=== PATIENT | male | born 2000 | race Caucasian/White ===

== ENCOUNTER 2024-10-01 16:42 | Emergency (ER) | payer MEDICAID ==
[~2024-10-01] VITALS: Ht 182.9 cm; Wt 87.0 kg
[2024-10-01 16:44] VITALS: O2SAT 100
[2024-10-01] MEDS: ACETAMINOPHEN 325MG TABLET PO ONE (18:01)
[2024-10-01] MEDS ORDERED: BACITRACIN ZINC OINT UDPKT TOP ONE (18:45)
[2024-10-01] MEDS ORDERED: DIPHENHYDRAMINE 50MG/ML VIAL IM ONE (19:15)
[2024-10-01] MEDS: LIDOCAINE HCL/PF 1% 10 MG/ML 5ML VIAL INFIL ONE (19:30)
[2024-10-01] MEDS ORDERED: BO1 TP (20:16)
[2024-10-01] MEDS: BACITRACIN ZINC OINT UDPKT TOP SCH (21:41)
[2024-10-01] MEDS: TETANUS, DIPHTHERIA, PERTUSSIS VAC/PF 0.5ML (>10YR OLD) IM ONE (21:42)
[2024-10-01] MEDS: DIPHENHYDRAMINE 50MG/ML VIAL IM SCH (21:43)
[2024-10-01 22:23] VITALS: BP 133/77; PULSE 94; RESP 18; TEMP 36.8; O2SAT 94
== END 2024-10-01 22:28 ==
LOC: ER 16:42
DX: S01.81XA Laceration without foreign body of other part of head, initial encounter (principal); F17.200 Nicotine dependence, unspecified, uncomplicated; F32.A Depression, unspecified; F12.90 Cannabis use, unspecified, uncomplicated; F10.90 Alcohol use, unspecified, uncomplicated; F19.90 Other psychoactive substance use, unspecified, uncomplicated; Y90.9 Presence of alcohol in blood, level not specified
CPT/HCPCS: 70450; 90715; 12011; 90471; 96372; 99285; J1200; J2003; Z7610 ×4